=== PATIENT | female | born 1995 | race Caucasian/White ===

== ENCOUNTER 2021-08-27 06:45 | Day surgery (SDC) | payer MEDICAID, SELFPAY ==
[~2021-08-27] VITALS: Ht 157.5 cm; Wt 65.8 kg
[2021-08-27 07:07] LABS: HCG,QUAL RESULT NEGATIVE (NEGATIVE)
[2021-08-27] MEDS ORDERED: LR 1,000 ML IV.SOLN IV ONE (08:43)
[2021-08-27] MEDS ORDERED: ROCURONIUM BROMIDE 10 MG/ML (ZEMURON) ONE (08:43)
[2021-08-27] MEDS ORDERED: SUGAMMADEX SODIUM 200 MG/2 ML VIAL IV ONE (08:43)
[2021-08-27] MEDS ORDERED: DEXAMETHASONE SOD PHOSPHATE 4 MG/ML VIAL ONE (08:43)
[2021-08-27] MEDS ORDERED: NS IRRIG SOLN 1000 ML IR ONE (08:43)
[2021-08-27] MEDS ORDERED: DESFLURANE 15 MIN GAS INH ONE (08:43)
[2021-08-27] MEDS ORDERED: NS 1000 ML IV.SOLN IV ONE (08:43)
[2021-08-27] MEDS ORDERED: MIDAZOLAM HCL 5 MG/ML VIAL (VERSED) IV ONE (08:43)
[2021-08-27] MEDS ORDERED: PROPOFOL 200MG/ 20ML VIAL (DIPRIVAN) IV ONE (08:43)
[2021-08-27] MEDS ORDERED: fentaNYL CITRATE 250 MCG/5 ML AMP ONE (08:43)
[2021-08-27] MEDS ORDERED: EPINEPHrine 1 MG/ML VIAL ONE (08:43)
[2021-08-27] MEDS ORDERED: LIDOCAINE 2%, 20 ML MDV ONE (08:43)
[2021-08-27] MEDS ORDERED: OXYMETAZOLINE HCL 0.05% NASAL SPRAY NS ONE (08:43)
[2021-08-27] MEDS ORDERED: ONDANSETRON HCL 4 MG/2 ML VIAL ONE (08:43)
[2021-08-27] MEDS ORDERED: LIDOCAINE/EPI 1% 1:100000 20 ML VIAL INJ ONE (08:43)
[2021-08-27] MEDS ORDERED: ACETAMINOPHEN I.V. 1000 MG 100 ML IV ONE (09:17)
[2021-08-27] MEDS ORDERED: MEPERIDINE HCL/PF 25 MG/ML DISP.SYRIN IVP PRN (09:45)
[2021-08-27] MEDS ORDERED: hydrALAZINE HCL 20 MG/ML VIAL IVP PRN (09:45)
[2021-08-27] MEDS ORDERED: HYDROmorphone 1 MG/ML INJ. CARTRIDGE IVP PRN (09:45)
[2021-08-27] MEDS ORDERED: LABETALOL 100 MG/ 20ML VIAL IVP PRN (09:45)
[2021-08-27] MEDS ORDERED: MIDAZOLAM HCL 2 MG/2 ML VIAL (VERSED) IVP PRN (09:45)
[2021-08-27] MEDS ORDERED: METOCLOPRAMIDE HCL 10 MG/2 ML VIAL IVP PRN (09:45)
[2021-08-27] MEDS ORDERED: LR 1,000 ML IV SCH (09:45)
[2021-08-27] MEDS ORDERED: HYDROmorphone 1 MG/ML INJ. CARTRIDGE ONE (14:08)
[2021-08-27] MEDS: HYDROmorphone 1 MG/ML INJ. CARTRIDGE IVP PRN ×2 (14:13→14:30)
[2021-08-27 15:28] VITALS: BP_SYST 120
== END 2021-08-27 16:25 | disposition home or self-care (01) ==
LOC: SDS 06:45 → SMU 06:46 → SDS 16:25
PROVIDERS: ATTEND Otolaryngology
DX: S02.2XXA Fracture of nasal bones, initial encounter for closed fracture (principal); D38.5 Neoplasm of uncertain behavior of other respiratory organs; J34.2 Deviated nasal septum; F33.9 Major depressive disorder, recurrent, unspecified; F41.9 Anxiety disorder, unspecified; H92.03 Otalgia, bilateral; X58.XXXA Exposure to other specified factors, initial encounter; Y93.89 Activity, other specified; Y92.89 Other specified places as the place of occurrence of the external cause; Y99.8 Other external cause status
CPT/HCPCS: 30140; 30520; 31240; 36415; 82948; 84703; 87426; 88304; 88311; J0131; J0171; J1100; J1170; J2001; J2250; J2405; J2704; J3010; J3490; J7030; J7120; 88305

== ENCOUNTER 2023-07-10 18:09 | Emergency (ER) | payer MEDICAID ==
[~2023-07-10] VITALS: Ht 157.5 cm; Wt 81.6 kg
[2023-07-10 18:26] VITALS: BP_SYST 131; PULSE 108; RESP 16; TEMP 98.5; O2SAT 95
[2023-07-10 19:07] LABS: COVID19 ANTIGEN SOFIA FIA NEGATIVE (NEGATIVE)
[2023-07-10 19:08] LABS: INFLUENZA TYPE A Negative (NEGATIVE); INFLUENZA TYPE B NEGATIVE (NEGATIVE)
[2023-07-10 19:34] LABS: INFLUENZA TYPE A NEGATIVE (NEGATIVE); INFLUENZA TYPE B NEGATIVE (NEGATIVE)
[2023-07-10] MEDS ORDERED: ALBMDI INH (20:02)
[2023-07-10] MEDS ORDERED: PSEU30TA36 PO (20:02)
== END 2023-07-10 20:38 | disposition home or self-care (01) ==
LOC: SED 18:09
DX: J40 Bronchitis, not specified as acute or chronic (principal); F17.200 Nicotine dependence, unspecified, uncomplicated; Z88.0 Allergy status to penicillin; Z71.6 Tobacco abuse counseling; Z20.822 Contact with and (suspected) exposure to COVID-19
CPT/HCPCS: 36415; 71045; 81025; 99284